=== PATIENT | female | born 2000 | race Caucasian/White ===

== ENCOUNTER 2024-07-08 23:57 | Inpatient (IN) | payer BC ==
[2024-07-09 00:24] VITALS: BMI 29.2
[2024-07-09] MEDS ORDERED: hydrALAZINE 20 MG/ML VIAL SLOW IVP PRN ×2 (00:57→11:02)
[2024-07-09] MEDS ORDERED: Misoprostol 200 MCG TAB PR PRN (00:57)
[2024-07-09] MEDS ORDERED: Ibuprofen 800 MG TAB PO PRN (00:57)
[2024-07-09] MEDS ORDERED: Methylergonovine 0.2 MG/ML VIAL IM PRN ×2 (00:57→11:02)
[2024-07-09] MEDS ORDERED: Tranexamic Acid 1,000 MG/10 ML VIAL IVP PRN (00:57)
[2024-07-09] MEDS ORDERED: Lidocaine 1% (PF) 30 ML VIAL SC PRN (00:57)
[2024-07-09] MEDS ORDERED: Promethazine HCl 25 MG/ML VIAL IM PRN (00:57)
[2024-07-09] MEDS ORDERED: Diphenoxylate HCl/Atropine Tablet PO PRN (00:57)
[2024-07-09] MEDS ORDERED: Carboprost 250 MCG/ML AMP IM PRN (00:57)
[2024-07-09] MEDS ORDERED: Ondansetron PF 4 MG/2 ML Vial IVP PRN ×2 (00:57→11:02)
[2024-07-09] MEDS ORDERED: Lactated Ringer's 1,000 ML IV SCH (01:00)
[2024-07-09] MEDS ORDERED: Oxytocin 30 units/NS 500 ML 500 ML IV SCH ×4 (01:00→11:15)
[2024-07-09 01:37] LABS: Hematocrit 35.9 % (34.9-44.5); Mean Corpuscular HGB CONC 33.4 g/dL (32.0-36.0); Mean Corpuscular Volume 80.9 fL (81.6-98.3); Mean Platelet Volume 10.8 fL (7.4-10.4); Platelet Count 274 10x3/uL (150-450); RBC Distribution Width 12.8 % (11.5-14.5); Red Blood Cell (RBC) Count 4.44 10x6/uL (3.90-5.03); White Blood Cell (WBC) Count 14.6 10x3/uL (3.5-10.5)
[2024-07-09 02:09] LABS: HBsAg Index 0.16 S/CO (0-0.99); Hep B Surf Ag - L&D Non-Reactive S/CO (NonReactive)
[2024-07-09 02:11] LABS: HIV (1/2) Antibody/Antigen Non-Reactive (NonReactive); HIV 1/2 INDEX 0.06 S/CO (<1.00)
[2024-07-09 02:12] LABS: Syphilis Antibody Nonreactive (Nonreactive); Syphilis Antibody Index 0.05 S/CO (<1.00 Non-Reactive)
[2024-07-09] MEDS ORDERED: Lanolin Ointment 7 GM TUBE TOP PRN (11:02)
[2024-07-09] MEDS ORDERED: Benzocaine-Menthol 82.5 ML CAN TOP PRN (11:02)
[2024-07-09] MEDS ORDERED: HYDROcodone/Acetaminophen 5/325 mg Tablet PO PRN (11:02)
[2024-07-09] MEDS ORDERED: Zolpidem Tartrate 5 MG TAB PO PRN (11:02)
[2024-07-09] MEDS ORDERED: Preparation H Ointment 28 GM TUBE PR PRN (11:02)
[2024-07-09] MEDS ORDERED: Milk Of Magnesia 30 ML UDCUP PO PRN (11:02)
[2024-07-09] MEDS ORDERED: Bisacodyl 10 MG SUPP PR PRN (11:02)
[2024-07-09] MEDS: Boostrix 0.5 ML (Tdap) VIAL (>/=7 yrs of age) IM ONE (11:25)
[2024-07-09] MEDS: Ibuprofen 800 MG TAB PO SCH (14:42)
[2024-07-09] MEDS: Ferrous Sulfate 325 MG TAB PO SCH (16:06)
[2024-07-09] MEDS: Docusate 100 MG CAP PO SCH (21:33)
[2024-07-10 04:41] LABS: Hematocrit 26.7 % (34.9-44.5); Hemoglobin 9.1 g/dL (12.0-15.5)
[2024-07-10 08:23] VITALS: BP 94/52; TEMP 98.2
[2024-07-10] MEDS: Prenatal Vitamin 1 TAB PO SCH (09:51)
== END 2024-07-10 16:50 | disposition home or self-care (01) | DRG 807 ==
LOC: CSHLD/OP 23:57 → CSHLD 07-09 00:39 → CSHPP 07-09 10:30
PROVIDERS: ADMIT Obstetrics & Gynecology; ATTEND Obstetrics & Gynecology
PROC: 10E0XZZ Delivery of Products of Conception, External Approach (ICD-10-PCS; principal; 2024-07-09)
PROC: 0KQM0ZZ Repair Perineum Muscle, Open Approach (ICD-10-PCS; 2024-07-09)
DX: O70.1 Second degree perineal laceration during delivery (principal); Z37.0 Single live birth; Z3A.39 39 weeks gestation of pregnancy
CPT/HCPCS: 36415; 85014; 85018; 85027; 86780; 86850; 86900; 86901; 87340; 87389; 99285